=== PATIENT | male | born 1985 | race Hispanic/Latino ===

== ENCOUNTER → 2017-11-27 | Outpatient (CLI) | payer BC, SELFPAY | END | disposition home or self-care (01) | LOC: RAH 10:13 | PROVIDERS: ATTEND Nurse Practitioner Family | DX: R51 Headache (principal) | CPT/HCPCS: 70450 ==

== ENCOUNTER 2018-02-23 17:25 | Emergency (ER) | payer BC, SELFPAY ==
[2018-02-23] MEDS ORDERED: ONDANSETRON HCL MDV 20ML 2 MG/ML VIAL ONE (18:22)
[2018-02-23] MEDS ORDERED: SODIUM CHLORIDE 0.9% 1000ML 2,000 ML IV ONE (18:22)
[2018-02-23 18:32] LABS: BASOPHILS % (AUTO) 0.3 % (0.0-5.0); EOSINOPHILS % (AUTO) 0.4 % (0.0-8.0); HEMATOCRIT 42.9 % (42-54); LYMPHOCYTES % (AUTO) 10.8 % (21.0-51.0); MEAN CORPUSCULAR HEMOGLOBIN 29.2 pg (27.0-33.0); MEAN CORPUSCULAR VOLUME 81.1 fL (79-99); MONOCYTES % (AUTO) 6.7 % (3.0-13.0); NEUTROPHILS % (AUTO) 81.8 % (40.0-77.0); NUCLEATED RED BLOOD CELLS 0.1 % (0.0-0.19); PLATELET COUNT (AUTO) 234 K/uL (130-400); RED BLOOD CELL COUNT(AUTO) 5.29 MIL/uL (4.50-6.20); RED CELL DISTRIBUTION WIDTH 13.9 % (11.0-15.5); WHITE BLOOD COUNT (AUTO) 9.9 K/uL (4.8-10.8)
[2018-02-23 18:45] LABS: CREATININE 1.2 mg/dL (0.5-1.5); POTASSIUM 4.4 mmol/L (3.5-5.1)
== END 2018-02-23 20:08 | disposition home or self-care (01) ==
LOC: EDH 17:25
DX: K52.9 Noninfective gastroenteritis and colitis, unspecified (principal); Z90.49 Acquired absence of other specified parts of digestive tract
CPT/HCPCS: 36415; 80048; 85025; 87040; 87804 ×2; 96361; 96374; 99285; J7030

== ENCOUNTER → 2020-05-26 | Outpatient (CLI) | payer BC | END | disposition home or self-care (01) | LOC: RAH 11:33 | PROVIDERS: ATTEND Nurse Practitioner Family | DX: M47.812 Spondylosis without myelopathy or radiculopathy, cervical region (principal); M50.20 Other cervical disc displacement, unspecified cervical region | CPT/HCPCS: 72141; 72148 ==

== ENCOUNTER 2024-04-02 00:50 | Emergency (ER) | payer BC, OTHER, SELFPAY ==
[~2024-04-02] VITALS: Ht 170.2 cm; Wt 105.7 kg
[2024-04-02 01:43] LABS: BASOPHILS # (AUTO) 0.03 K/uL (0.00-0.20); BASOPHILS % (AUTO) 0.2 % (0.0-5.0); EOSINOPHILS # (AUTO) 0.03 K/uL (0.00-0.70); EOSINOPHILS % (AUTO) 0.2 % (0.0-8.0); HEMATOCRIT 47.2 % (42-54); IMMATURE GRANULOCYTE ABSOLUTE 0.06 K/uL (0-1); LYMPHOCYTES % (AUTO) 15.6 % (21.0-51.0); MEAN CORPUSCULAR HEMOGLOBIN 28.4 pg (27.0-33.0); MEAN CORPUSCULAR HGB CONC 33.7 g/dL (32.0-36.0); MEAN CORPUSCULAR VOLUME 84.3 fL (79-99); MONOCYTES # (AUTO) 0.6 K/uL (0.1-1.0); MONOCYTES % (AUTO) 4.5 % (3.0-13.0); PLATELET COUNT (AUTO) 294 K/uL (130-400); RED CELL DISTRIBUTION WIDTH 13.1 % (11.0-15.5); WHITE BLOOD COUNT (AUTO) 12.7 K/uL (4.8-10.8)
[2024-04-02] MEDS: DiphenhydrAMINE HCL 50 MG/ML VIAL IV ONE (01:44)
[2024-04-02] MEDS: SOLU-MEDROL 125MG VIAL IVP ONE (01:44)
[2024-04-02] MEDS: 0.9%NACL 1000ML 660 ML IV ONE (01:44)
[2024-04-02] MEDS: FAMOTIDINE 20MG VIAL IV SCH (01:49)
[2024-04-02 01:58] LABS: CREATININE 1.4 mg/dL (0.5-1.3); POTASSIUM 4.2 mmol/L (3.5-5.1)
[2024-04-02 02:03] LABS: BILIRUBIN,TOTAL 1.2 mg/dL (0.2-1.0); TOTAL PROTEIN, SERUM 7.6 g/dL (6.0-8.3)
[2024-04-02] MEDS: FAMOTIDINE 20MG VIAL IV ONE (02:17)
[2024-04-02 02:56] VITALS: BP 112/74; PULSE 70; RESP 18; O2SAT 100
[2024-04-02] MEDS ORDERED: PRED10TA23 PO (03:04)
== END 2024-04-02 03:11 | disposition home or self-care (01) ==
LOC: EDH 00:50
DX: T78.49XA Other allergy, initial encounter (principal); E78.00 Pure hypercholesterolemia, unspecified; Z90.49 Acquired absence of other specified parts of digestive tract; X58.XXXA Exposure to other specified factors, initial encounter
CPT/HCPCS: 99284; 96374; 96361; 96375 ×2; 80053; 85025; 36415; 93005; J1200; J3490; J7030; J2919

== ENCOUNTER 2024-12-05 14:36 | Emergency (ER) | payer BC ==
[~2024-12-05] VITALS: Ht 170.2 cm; Wt 108.0 kg
[~2024-12-05 14:36] MED LIST: PRED10TA23 PO
[2024-12-05 14:42] VITALS: BP 129/86; PULSE 74; RESP 16; TEMP 98.6
--- NOTE | 2024-12-05 14:52 | ERN ---
ED Note History of Present Illness Stated Complaint: ALLERGIC REACTION Chief Complaint: Allergic Reaction Time Seen by MD: 14:42 Dictation: PATIENT IS A 39-YEAR-OLD MALE STATES HE HAD EATEN SOME [place]IN[place] FOOD THIS MORNING WHEN HE STARTED FEELING MILDLY SHORT OF BREATH WITH HIS TONGUE THICKENING. HE STATES HE HAD A RASH HOWEVER HE TOOK BENADRYL 50 MG PRIOR TO ARRIVAL. STATES HE HAS A HISTORY OF ALLERGIES. CURRENTLY HE IS VOICE IS CLEAR, NO RASH NOTED THAT THIS TIME. BILATERAL BREATH SOUNDS CLEAR Allergies: Coded Allergies: No Known Drug Allergies (Verified Allergy, 10/25/13) Home Meds Active Scripts Prednisone (Prednisone) 20 Mg Tablet, 40 MG PO DAILY for 3 Days, #6 TAB 40 mg daily as directed for three days with food Prov:LAURA FRANKS [employer] SERVICE MANAGER 12/05/24 Diphenhydramine HCl (Benadryl) 50 Mg Cap, 50 MG PO Q6H for itching/rash, #20 CAP 0 Refills Prov:LAURA FRANKS [employer]ER[employer] SERVICE MANAGER 12/05/24 Prednisone (Prednisone) 10 Mg Tab.ds.pk, 10 MG PO DAILY for rash for 4 Days, #16 TAB 0 Refills Prov:RUBI KEARNEY MD 04/02/24 Past Medical History Past Medical History: High Cholesterol Additional Past Medical Hx: ALLERGIC REACTION TO UNKNOWN SUBSTANCES IN FOODS Surgical History: Cholecystectomy RN Note Reviewed/Agreed w/PFSH: Yes Review of System Dictation CONSTITUTIONAL: NEGATIVE EXCEPT FOR HPI HEAD/FACE: NEGATIVE EXCEPT FOR HPI EENT: NEGATIVE EXCEPT FOR HPI TONGUE ANGIOEDEMA RESPIRATORY: NEGATIVE EXCEPT FOR HPI SOB GASTROINTESTINAL/ABDOMINAL: NEGATIVE EXCEPT FOR HPI GENITOURINARY: NEGATIVE EXCEPT FOR HPI MUSCULOSKELETAL: NEGATIVE EXCEPT FOR HPI INTEGUMENTARY: NEGATIVE EXCEPT FOR HPI RASH NEUROLOGICAL/PSYCH: NEGATIVE EXCEPT FOR HPI HEMATOLOGIC/LYMPHATIC: NEGATIVE EXCEPT FOR HPI ALL SYSTEMS NEGATIVE, EXCEPT NOTED ABOVE. 13 POINT REVIEW OF SYSTEMS ASSESSED AND ALL NEGATIVE EXCEPT FOR ABOVE. Initial Vital Sign VS Vital Signs Date Time Temp Pulse Resp B/P (MAP) Pulse Ox O2 Delivery O2 Flow Rate FiO2 12/05/24 14:42 98.6 74 16 129/86 95 Room Air Physical Exam Dictation VITAL SIGNS REVIEWED GENERAL APPEARANCE: ALERT, ORIENTED X 3, MILD ACUTE DISTRESS, WELL DEVELOPED, NOURISHED. OBESE HEAD AND FACE: NON-TRAUMATIC. EYES: PERRL, PINK CONJUNCTIVAS, EYELID NO TRAUMA, ANTERIOR CHAMBER WITH ARCUS SENILIS. EARS: PINNAS INTACT AND NO SIGNS OF TRAUMA OR ERYTHEMA EAR CANALS CLEAR AND NO DISCHARGE TM NO ERYTHEMA NOSE: NO DISCHARGE, NO BLEEDING. OROPHARYNX: MOUTH NORMAL, TONGUE PINK, SPEECH IS CLEAR NO STRIDOR PHARYNX CLEAR,NO ERYTHEMA, TONSILS NO EXUDATES, NO ABSCESSES NOTED, MUCOUS MEMBRANE MOIST NECK: SUPPLE, NON-TENDER, NO THYROMEGALY, NO MASSES, NO JVD, NO BRUITS BREAST:DEFERRED CHEST:NO TENDERNESS, NO CREPITUS, NO PARADOXICAL MOVEMENT, NO RETRACTIONS LUNGS:CLEAR, WELL-VENTILATED, SYMMETRIC, NO RALES, NO WHEEZING, NO RHONCHI, NO STRIDOR, GOOD BREATH SOUNDS BILATERALLY HEART: REGULAR RATE, REGULAR RHYTHM, NO MURMUR, NO GALLOPS VASCULAR: NO PERIPHERAL EDEMA, ABDOMEN: SOFT, POSITIVE BOWEL SOUNDS, NONDISTENDED, NO GUARDING, NONTENDER, NO REBOUND, NO MASSES NO HEPATOMEGALY, NO SPLENOMEGALY, NO LAKE'S SIGN, NO HERNIAS. RECTAL: DEFERRED GENITAL: DEFERRED NEUROLOGICAL: NORMAL SPEECH, MOTOR FUNCTION INTACT, SENSORY FUNCTION INTACT MUSCULOSKELETAL: NECK NONTENDER, FULL RANGE OF MOTION, BACK NONTENDER, FULL RANGE OF MOTION, EXTREMITIES: NONTENDER, FULL RANGE OF MOTION SKIN: COLOR PINK, DRY, NO TURGOR, NO RASH, NO LACERATIONS, NO ABRASIONS, NO CONTUSIONS. LYMPHATIC: DEFERRED Results (Laboratory/Radiology) Labs Reviewed?: Yes ED Course ED Course Orders Procedure Category Date Status Time Methylprednisolone PHA 12/05/24 Complete Succ 125mg (Solu-Medr 15:00 Famotidine 20mg Tab PHA 12/05/24 Complete (Pepcid 20mg Tab) 15:00 Current Medications Medications (Trade) Dose Ordered Sig/Jorge Route PRN Reason Start Time Stop Time Status Last Admin Dose Admin Famotidine (Pepcid 20mg Tab) 40 mg ONCE ONCE PO 12/05/24 15:00 12/05/24 15:01 DC Methylprednisolone Sodium Succinate (Solu-medROL 125MG) 125 mg ONCE ONCE IVP 12/05/24 15:00 12/05/24 15:01 DC Vital Signs Date Time Temp Pulse Resp B/P (MAP) Pulse Ox O2 Delivery O2 Flow Rate FiO2 12/05/24 14:42 98.6 74 16 129/86 95 Room Air 19:00 hours patient given medications as directed. Told see his primary care doctor tomorrow without fail for follow up and treatment Medical Decision Making MDM Medical discharge making based on empiric treatment for food allergy most likely monosodium glutamate Patient told to continue Benadryl 50 mg every 6 hours for three more doses Take prednisone as directed See his primary care doctor MDM: Differential diagnosis: Angioedema of tongue, allergic reaction Risk of complication and/or morbidity or mortality of patient management: None Medications-Per medication reconciliation Need for hospitalization: Patient does not meet criteria for hospitalization. Need for emergency major/minor surgery: No There are no social concerns with this patient. Prescription drug management Prescriptions will include symptomatic care I independently interpreted the test that were performed, results were reviewed by me and considered findings on radiology if ordered. DX & DISP Disposition: Discharge Departure Impression: Primary Impression: Angioedema of tongue Condition: Stable Scripts Prednisone (Prednisone) 20 Mg Tablet 40 MG PO DAILY for 3 Days, #6 TAB 40 mg daily as directed for three days with food Prov: LAURA FRANKS [employer] MANAGER 12/05/24 Diphenhydramine HCl (Benadryl) 50 Mg Cap 50 MG PO Q6H for itching/rash, #20 CAP 0 Refills Prov: LAURA FRANKS [employer] SERV[employer] MANAGER 12/05/24 Additional Instructions: Follow-up with primary care provider in 1 to 2 days. Take medications as directed here in the emergency room. Okay to continue home medications unless otherwise discussed during your visit in the emergency room today. Return to your nearest emergency room if symptoms worsen or if there is no improvement. Call 911 if you need immediate assistance. Take Tylenol or Motrin [id number] as needed and if no contraindications are present. Increase oral hydration. A wound culture or urine culture was ordered here in the emergency room department please follow-up with primary care provider and advise them to get repeat ports from our facility. If you had any [place] wrap/splints that were applied here, please do not remove them until you see your primary care or specialty. Take prednisone as directed until gone. Take Benadryl 50 mg every 6 hours for three more doses. Do not eat anymore the [place] food that you eight today until cleared by your doctor. See him tomorrow for follow up Referrals: MIRIAM LIU (PCP) Time of Disposition: 19:01 I have reviewed the case, and I agree with, Diagnosis and Plan I performed the substantive portion of the visit. I have reviewed and personally made and approve the management plan that is documented in the notes by myself or the ZARIA. I acknowledge full responsibility for the patient's management plan. LAURA FRANKS NP Dec 05, 2024 14:52 SINA LUZ MD Dec 06, 2024 15:53
[2024-12-05] MEDS ORDERED: FAMOTIDINE 20MG TAB PO ONE (15:00)
[2024-12-05] MEDS ORDERED: Solu-medROL 125MG VIAL IVP ONE (15:00)
[2024-12-05] MEDS ORDERED: PRED20TA3 PO (19:03)
[2024-12-05] MEDS ORDERED: DIPH50 PO (19:03)
--- NOTE | 2024-12-05 19:06 | NUR ---
PER REGISTRATION, PT LEFT DUE TO WAIT TIME
--- NOTE | 2024-12-05 19:10 | NUR ---
PT CALLED AT 1909 AND 1912, NO ANSWER
== END 2024-12-05 19:14 | disposition left against medical advice (07) ==
LOC: EDH 14:36
DX: T78.3XXA Angioneurotic edema, initial encounter (principal); E78.00 Pure hypercholesterolemia, unspecified; Z79.52 Long term (current) use of systemic steroids; Z90.49 Acquired absence of other specified parts of digestive tract; Z79.899 Other long term (current) drug therapy
CPT/HCPCS: 99283